=== PATIENT | female | born 1985 | race Two or more races ===

== ENCOUNTER 2020-02-05 21:18 | Inpatient (IN) | payer OTHER ==
[~2020-02-05] VITALS: Ht 162.6 cm; Wt 66.7 kg
[2020-02-05 22:38] LABS: BASOPHILS % (AUTO) 0.6 % (0.0-2.0); EOSINOPHILS % (AUTO) 2.2 % (1.0-6.0); HEMATOCRIT 44.8 % (36-46); HEMOGLOBIN 14.7 g/dL (12.0-16.0); LYMPHOCYTES # (AUTO) 3.1 K/uL (1.0-4.8); LYMPHOCYTES % (AUTO) 30.1 % (22.0-44.0); MEAN CORPUSCULAR HEMOGLOBIN 30.9 pg (26.0-34.0); MEAN CORPUSCULAR HGB CONC 32.8 G/dL (31.0-37.0); MEAN CORPUSCULAR VOLUME 94 fL (80-100); MONOCYTES # (AUTO) 1.3 K/uL (0.1-1.0); MONOCYTES % (AUTO) 12.3 % (2.0-9.0); NEUTROPHILS # (AUTO) 5.7 K/uL (1.8-7.7); NEUTROPHILS % (AUTO) 54.8 % (40.0-70.0); PLATELET COUNT (AUTO) 356 K/uL (150-450); RED BLOOD CELL COUNT(AUTO) 4.76 MIL/uL (4.00-5.20); RED CELL DISTRIBUTION WIDTH 13.7 % (11.5-14.5)
[2020-02-05] MEDS ORDERED: HALOPERIDOL LACTATE 5 MG/ML VIAL ONE (22:44)
[2020-02-05] MEDS ORDERED: DiphenhydrAMINE HCL 50 MG/ML VIAL ONE (22:44)
[2020-02-05] MEDS ORDERED: LORazepam 2 MG/ML VIAL ONE (22:44)
[2020-02-05] MEDS ORDERED: DiphenhydrAMINE HCL 50 MG/ML VIAL IM ONE (22:45)
[2020-02-05] MEDS ORDERED: HALOPERIDOL LACTATE 5 MG/ML VIAL IM ONE (22:45)
[2020-02-05] MEDS ORDERED: LORazepam 2 MG/ML VIAL IM ONE (22:45)
[2020-02-05] MEDS ORDERED: ZOLPIDEM TARTRATE 10 MG TABLET PO PRN (23:00)
[2020-02-05] MEDS ORDERED: OLANZapine 5 MG RAPDIS TABLET PO PRN (23:00)
[2020-02-05] MEDS ORDERED: LORazepam 2 MG TABLET PO PRN (23:00)
[2020-02-05 23:10] LABS: ALANINE AMINOTRANSFERASE 31 U/L (12-78); ALKALINE PHOSPHATASE 89 U/L (46-116); ANION GAP 10 mmol/L (8-16); ASPARTATE AMINOTRANSFERASE 22 U/L (15-37); BILIRUBIN,TOTAL 0.4 mg/dL (0.1-1.0); CALCIUM, TOTAL 9.2 mg/dL (8.8-10.5); CARBON DIOXIDE 29 mmol/L (22-29); CHLORIDE 103 mmol/L (98-107); CREATININE 0.83 mg/dL (0.60-1.30); GLOMERULAR FILTR. RATE CALC > 60 mL/min (>60); GLUCOSE,RANDOM 106 mg/dL (70-110); POTASSIUM 4.1 mmol/L (3.5-5.1); SODIUM SERUM 142 mmol/L (136-145); UREA NITROGEN, BLOOD 9 mg/dL (7-18)
[2020-02-05 23:17] LABS: AMPHET/METH SCREEN,URINE NEGATIVE (NEGATIVE); BARBITURATE SCREEN, URINE NEGATIVE (NEGATIVE); BENZODIAZEPINES SCREEN,URINE NEGATIVE (NEGATIVE); CANNABINOID SCREEN,URINE NEGATIVE (NEGATIVE); COCAINE SCREEN,URINE NEGATIVE (NEGATIVE); METHADONE SCREEN, URINE NEGATIVE (NEGATIVE); OPIATE SCREEN,URINE NEGATIVE (NEGATIVE)
[2020-02-05 23:20] LABS: PHENCYCLIDINE SCREEN,URINE NEGATIVE (NEGATIVE)
[2020-02-06 01:19] VITALS: BP 90/60
[2020-02-06] MEDS ORDERED: PNEUMOCOCCAL VACCINE POLYVALENT 0.5 ML VIAL [PPSV23] IM ONE (03:30)
[2020-02-06 08:28] VITALS: BP 100/61
[2020-02-06] MEDS ORDERED: PROMETHAZINE HCL 25 MG TABLET PO PRN (16:00)
[2020-02-06] MEDS ORDERED: HydrOXYzine PAMOATE 50 MG CAPSULE PO PRN (16:00)
[2020-02-06] MEDS ORDERED: GuaiFENesin/D-METHORPHAN [SUGAR-FREE] 200-20MG/10 ML SYRUP UDCUP PO PRN (16:00)
[2020-02-06] MEDS ORDERED: TUBERCULIN, PURIFIED PROTEIN DERIVATIVE 5 TU/0.1 ML SYRINGE ID ONE (16:00)
[2020-02-06 16:30] VITALS: BP 112/74
[2020-02-06] MEDS: THIAMINE 100 MG TABLET PO SCH (17:00)
[2020-02-06] MEDS: OLANZapine 5 MG RAPDIS TABLET PO SCH (21:00)
[2020-02-06] MEDS: DIVALPROEX SODIUM 500 MG ER TABLET PO SCH (21:00)
[2020-02-07 03:43] VITALS: BP 95/60
[2020-02-07 07:55] LABS: HEMOGLOBIN A1C 4.9 % (3.8-5.6)
[2020-02-07 07:56] LABS: CHOL/HDL RATIO 2.3 (3.9-5.7); CHOLESTEROL 184 mg/dL (131-200); HCG,QUANTITATIVE < 1 mIU/mL (0-6); HDL CHOLESTEROL 81 mg/dL (40-60); LDL CHOL (CALC.) 83 mg/dL (0-130); THYROID STIMULATING HORMONE 0.72 uIU/mL (0.36-3.74); TRIGLYCERIDES 98 mg/dL (15-150)
[2020-02-07 08:30] VITALS: BP 79/50
[2020-02-07] MEDS: THIAMINE 100 MG TABLET PO SCH ×2 (09:00→16:18)
[2020-02-07] MEDS: MULTIVITAMINS WITH MINERALS, THERAPEUTIC TABLET PO SCH (09:00)
[2020-02-07] MEDS: FOLIC ACID 1 MG TABLET PO SCH (09:00)
[2020-02-07] MEDS: NALTREXONE HCL 50 MG TABLET PO SCH (09:00)
[2020-02-07 17:23] VITALS: BP 123/74
[2020-02-07] MEDS: OLANZapine 5 MG RAPDIS TABLET PO SCH (21:00)
[2020-02-07] MEDS: DIVALPROEX SODIUM 500 MG ER TABLET PO SCH (21:00)
[2020-02-07] MEDS: IBUPROFEN 600 MG TABLET PO PRN (23:05)
[2020-02-08 00:21] VITALS: BP 117/76
[2020-02-08] MEDS: FOLIC ACID 1 MG TABLET PO SCH (08:14)
[2020-02-08] MEDS: NALTREXONE HCL 50 MG TABLET PO SCH (08:14)
[2020-02-08] MEDS: THIAMINE 100 MG TABLET PO SCH ×2 (08:15→17:00)
[2020-02-08] MEDS: MULTIVITAMINS WITH MINERALS, THERAPEUTIC TABLET PO SCH (08:15)
[2020-02-08 08:37] VITALS: BP 108/66
[2020-02-08] MEDS ORDERED: LOPERAMIDE HCL 2 MG CAPSULE PO PRN (16:15)
[2020-02-08] MEDS ORDERED: MAGNESIUM HYDROXIDE SUSPENSION 30 ML UDCUP PO PRN (16:15)
[2020-02-08] MEDS ORDERED: PROMETHAZINE HCL 25 MG TABLET PO PRN (16:15)
[2020-02-08] MEDS ORDERED: MAG HYDROX/AL HYDROX/SIMETH ES 30 ML SUSPENSION UDCUP PO PRN (16:15)
[2020-02-08 16:28] VITALS: BP 101/72
[2020-02-08] MEDS ORDERED: PETROLATUM,WHITE 28 GM JELLY TP PRN (16:30)
[2020-02-08] MEDS: IBUPROFEN 600 MG TABLET PO PRN (17:03)
[2020-02-08] MEDS: OLANZapine 5 MG RAPDIS TABLET PO SCH (20:47)
[2020-02-08] MEDS: DIVALPROEX SODIUM 500 MG ER TABLET PO SCH (20:47)
[2020-02-09] MEDS: IBUPROFEN 600 MG TABLET PO PRN ×2 (00:33→17:00)
[2020-02-09 02:20] VITALS: BP 112/79
[2020-02-09 08:27] VITALS: BP 114/75
[2020-02-09] MEDS: MULTIVITAMINS WITH MINERALS, THERAPEUTIC TABLET PO SCH (08:36)
[2020-02-09] MEDS: NALTREXONE HCL 50 MG TABLET PO SCH (08:36)
[2020-02-09] MEDS: FOLIC ACID 1 MG TABLET PO SCH (08:36)
[2020-02-09] MEDS: THIAMINE 100 MG TABLET PO SCH ×2 (08:37→17:00)
[2020-02-09 16:39] VITALS: BP 122/80
[2020-02-09] MEDS: DIVALPROEX SODIUM 500 MG ER TABLET PO SCH (21:00)
[2020-02-09] MEDS: OLANZapine 5 MG RAPDIS TABLET PO SCH (21:00)
[2020-02-10] MEDS: IBUPROFEN 600 MG TABLET PO PRN ×2 (00:02→16:05)
[2020-02-10] MEDS ORDERED: DiphenhydrAMINE HCL 50 MG/ML VIAL IM ONE (00:15)
[2020-02-10] MEDS ORDERED: HALOPERIDOL LACTATE 5 MG/ML VIAL IM ONE (00:15)
[2020-02-10] MEDS ORDERED: LORazepam 2 MG/ML VIAL IM ONE (00:15)
[2020-02-10] MEDS ORDERED: HALOPERIDOL LACTATE 5 MG/ML VIAL ONE (00:17)
[2020-02-10] MEDS ORDERED: LORazepam 2 MG/ML VIAL ONE (00:17)
[2020-02-10] MEDS ORDERED: DiphenhydrAMINE HCL 50 MG/ML VIAL ONE (00:17)
[2020-02-10 02:08] VITALS: BP 109/76
[2020-02-10] MEDS: FOLIC ACID 1 MG TABLET PO SCH (09:00)
[2020-02-10] MEDS: NALTREXONE HCL 50 MG TABLET PO SCH (09:00)
[2020-02-10] MEDS: THIAMINE 100 MG TABLET PO SCH ×2 (09:00→17:00)
[2020-02-10] MEDS: MULTIVITAMINS WITH MINERALS, THERAPEUTIC TABLET PO SCH (09:00)
[2020-02-10 10:33] VITALS: BP 95/66
[2020-02-10 17:52] VITALS: BP 106/72
[2020-02-10] MEDS: OLANZapine 5 MG RAPDIS TABLET PO SCH (21:00)
[2020-02-10] MEDS: DIVALPROEX SODIUM 500 MG ER TABLET PO SCH (21:00)
[2020-02-11 01:45] VITALS: BP 100/75
[2020-02-11 08:25] VITALS: BP 126/71
[2020-02-11] MEDS: MULTIVITAMINS WITH MINERALS, THERAPEUTIC TABLET PO SCH (09:00)
[2020-02-11] MEDS: NALTREXONE HCL 50 MG TABLET PO SCH (09:00)
[2020-02-11] MEDS: THIAMINE 100 MG TABLET PO SCH ×3 (09:00→17:10)
[2020-02-11] MEDS: FOLIC ACID 1 MG TABLET PO SCH (09:00)
[2020-02-11] MEDS: IBUPROFEN 600 MG TABLET PO PRN ×2 (12:56→22:05)
[2020-02-11 16:41] VITALS: BP 111/72
[2020-02-11] MEDS: OLANZapine 5 MG RAPDIS TABLET PO SCH (20:53)
[2020-02-11] MEDS: DIVALPROEX SODIUM 500 MG ER TABLET PO SCH (20:53)
[2020-02-12 03:19] VITALS: BP 98/69
[2020-02-12] MEDS: IBUPROFEN 600 MG TABLET PO PRN ×3 (04:18→23:19)
[2020-02-12] MEDS: FOLIC ACID 1 MG TABLET PO SCH (08:39)
[2020-02-12] MEDS: NALTREXONE HCL 50 MG TABLET PO SCH (08:40)
[2020-02-12] MEDS: THIAMINE 100 MG TABLET PO SCH ×2 (08:40→17:00)
[2020-02-12] MEDS: MULTIVITAMINS WITH MINERALS, THERAPEUTIC TABLET PO SCH (08:40)
[2020-02-12 08:54] VITALS: BP 109/72
[2020-02-12 17:22] VITALS: BP 113/87
[2020-02-12] MEDS: DIVALPROEX SODIUM 500 MG ER TABLET PO SCH (20:30)
[2020-02-12] MEDS: OLANZapine 5 MG RAPDIS TABLET PO SCH (20:30)
[2020-02-12] MEDS ORDERED: BACLOFEN 10 MG TABLET PO PRN (21:30)
[2020-02-12] MEDS ORDERED: ALBUTEROL SULFATE HFA 90 MCG/PUFF 8 GM INHALER IH PRN (21:30)
[2020-02-13] MEDS: FOLIC ACID 1 MG TABLET PO SCH ×2 (09:00→10:00)
[2020-02-13] MEDS: NALTREXONE HCL 50 MG TABLET PO SCH ×2 (09:00→10:00)
[2020-02-13] MEDS: THIAMINE 100 MG TABLET PO SCH ×3 (09:00→17:23)
[2020-02-13] MEDS: MULTIVITAMINS WITH MINERALS, THERAPEUTIC TABLET PO SCH ×2 (09:00→10:00)
[2020-02-13] MEDS: CETIRIZINE HCL 10 MG TABLET PO SCH ×2 (09:00→10:00)
[2020-02-13] MEDS ORDERED: DIVALPROEX SODIUM 500 MG ER TABLET PO ONE (10:45)
[2020-02-13] MEDS: DIVALPROEX SODIUM 500 MG ER TABLET PO SCH (12:30)
[2020-02-13] MEDS: IBUPROFEN 600 MG TABLET PO PRN ×2 (14:14→21:01)
[2020-02-13 16:18] VITALS: BP 126/100
[2020-02-13] MEDS: OLANZapine 5 MG RAPDIS TABLET PO SCH (20:25)
[2020-02-14 00:54] VITALS: BP 106/60
[2020-02-14 08:09] VITALS: BP 127/100
[2020-02-14] MEDS: THIAMINE 100 MG TABLET PO SCH ×2 (08:49→17:35)
[2020-02-14] MEDS: MULTIVITAMINS WITH MINERALS, THERAPEUTIC TABLET PO SCH (08:49)
[2020-02-14] MEDS: CETIRIZINE HCL 10 MG TABLET PO SCH (08:49)
[2020-02-14] MEDS: FOLIC ACID 1 MG TABLET PO SCH (08:49)
[2020-02-14] MEDS: NALTREXONE HCL 50 MG TABLET PO SCH (09:00)
[2020-02-14] MEDS: DIVALPROEX SODIUM 500 MG ER TABLET PO SCH (12:30)
[2020-02-14 17:12] VITALS: BP 148/86
[2020-02-14] MEDS: IBUPROFEN 600 MG TABLET PO PRN (19:52)
[2020-02-14] MEDS: OLANZapine 5 MG RAPDIS TABLET PO SCH (20:53)
[2020-02-15 06:01] VITALS: BP 100/65
[2020-02-15 08:20] VITALS: BP 105/49
[2020-02-15] MEDS: MULTIVITAMINS WITH MINERALS, THERAPEUTIC TABLET PO SCH (08:35)
[2020-02-15] MEDS: FOLIC ACID 1 MG TABLET PO SCH (08:35)
[2020-02-15] MEDS: NALTREXONE HCL 50 MG TABLET PO SCH (08:35)
[2020-02-15] MEDS: IBUPROFEN 600 MG TABLET PO PRN ×2 (08:36→21:54)
[2020-02-15] MEDS: THIAMINE 100 MG TABLET PO SCH ×2 (08:36→17:00)
[2020-02-15] MEDS: CETIRIZINE HCL 10 MG TABLET PO SCH (08:37)
[2020-02-15] MEDS: DIVALPROEX SODIUM 500 MG ER TABLET PO SCH (12:30)
[2020-02-15 16:41] VITALS: BP 112/87
[2020-02-15] MEDS: OLANZapine 5 MG RAPDIS TABLET PO SCH (21:00)
[2020-02-16] MEDS: IBUPROFEN 600 MG TABLET PO PRN ×2 (01:47→21:05)
[2020-02-16] MEDS ORDERED: DiphenhydrAMINE HCL 50 MG/ML VIAL ONE (03:17)
[2020-02-16] MEDS ORDERED: HALOPERIDOL LACTATE 5 MG/ML VIAL ONE (03:18)
[2020-02-16] MEDS ORDERED: LORazepam 2 MG/ML VIAL ONE (03:18)
[2020-02-16] MEDS ORDERED: HALOPERIDOL LACTATE 5 MG/ML VIAL IM ONE (03:30)
[2020-02-16] MEDS ORDERED: LORazepam 2 MG/ML VIAL IM ONE (03:30)
[2020-02-16] MEDS ORDERED: DiphenhydrAMINE HCL 50 MG/ML VIAL IM ONE (03:30)
[2020-02-16] MEDS: THIAMINE 100 MG TABLET PO SCH ×2 (09:00→10:02)
[2020-02-16] MEDS: FOLIC ACID 1 MG TABLET PO SCH ×2 (09:00→10:02)
[2020-02-16] MEDS: MULTIVITAMINS WITH MINERALS, THERAPEUTIC TABLET PO SCH ×2 (10:02→12:16)
[2020-02-16] MEDS: CETIRIZINE HCL 10 MG TABLET PO SCH ×2 (10:02→12:16)
[2020-02-16] MEDS: NALTREXONE HCL 50 MG TABLET PO SCH ×2 (10:02→12:16)
[2020-02-16] MEDS: DIVALPROEX SODIUM 500 MG ER TABLET PO SCH (12:19)
[2020-02-16 17:40] VITALS: BP 115/69
[2020-02-16] MEDS: OLANZapine 5 MG RAPDIS TABLET PO SCH (21:00)
[2020-02-17 08:21] VITALS: BP 113/64
[2020-02-17] MEDS: MULTIVITAMINS WITH MINERALS, THERAPEUTIC TABLET PO SCH (09:00)
[2020-02-17] MEDS: NALTREXONE HCL 50 MG TABLET PO SCH (09:00)
[2020-02-17] MEDS: CETIRIZINE HCL 10 MG TABLET PO SCH (09:00)
[2020-02-17] MEDS: DIVALPROEX SODIUM 500 MG ER TABLET PO SCH (12:28)
[2020-02-17] MEDS: IBUPROFEN 600 MG TABLET PO PRN ×2 (13:50→20:44)
[2020-02-17 17:40] VITALS: BP 103/63
[2020-02-17] MEDS: OLANZapine 5 MG RAPDIS TABLET PO SCH (21:00)
[2020-02-18] MEDS: MULTIVITAMINS WITH MINERALS, THERAPEUTIC TABLET PO SCH (08:28)
[2020-02-18] MEDS: CETIRIZINE HCL 10 MG TABLET PO SCH (08:28)
[2020-02-18] MEDS: NALTREXONE HCL 50 MG TABLET PO SCH (08:29)
[2020-02-18 08:37] VITALS: BP 119/58
[2020-02-18] MEDS: IBUPROFEN 600 MG TABLET PO PRN ×3 (08:56→23:19)
[2020-02-18] MEDS: DIVALPROEX SODIUM 500 MG ER TABLET PO SCH (10:45)
[2020-02-18 16:43] VITALS: BP 115/65
[2020-02-18] MEDS ORDERED: HALOPERIDOL LACTATE 5 MG/ML VIAL IM PRN (17:15)
[2020-02-18] MEDS ORDERED: LURASIDONE HCL 20 MG TABLET PO ONE (18:15)
[2020-02-19] MEDS: LURASIDONE HCL 20 MG TABLET PO SCH ×3 (06:54→17:56)
[2020-02-19 08:40] VITALS: BP 110/68
[2020-02-19] MEDS: IBUPROFEN 600 MG TABLET PO PRN ×2 (08:44→16:38)
[2020-02-19] MEDS: CETIRIZINE HCL 10 MG TABLET PO SCH (08:45)
[2020-02-19] MEDS: DIVALPROEX SODIUM 500 MG ER TABLET PO SCH (08:45)
[2020-02-19] MEDS: MULTIVITAMINS WITH MINERALS, THERAPEUTIC TABLET PO SCH (08:45)
[2020-02-19] MEDS: NALTREXONE HCL 50 MG TABLET PO SCH (08:45)
[2020-02-19] MEDS ORDERED: ALPRAZolam 1 MG TABLET PO PRN ×2 (10:45→14:45)
[2020-02-19 16:37] VITALS: BP 109/71
[2020-02-20] MEDS: LURASIDONE HCL 20 MG TABLET PO SCH ×2 (06:30→12:00)
[2020-02-20 06:34] VITALS: BP 105/68
[2020-02-20 08:15] VITALS: BP 121/63
[2020-02-20] MEDS: NALTREXONE HCL 50 MG TABLET PO SCH (08:39)
[2020-02-20] MEDS: MULTIVITAMINS WITH MINERALS, THERAPEUTIC TABLET PO SCH (08:39)
[2020-02-20] MEDS: DIVALPROEX SODIUM 500 MG ER TABLET PO SCH (08:39)
[2020-02-20] MEDS: CETIRIZINE HCL 10 MG TABLET PO SCH (08:39)
[2020-02-20] MEDS: IBUPROFEN 600 MG TABLET PO PRN (08:49)
[2020-02-20] MEDS ORDERED: CloNIDine HCL 0.1 MG TABLET PO PRN (14:00)
[2020-02-20] MEDS ORDERED: LOPERAMIDE HCL 2 MG CAPSULE PO PRN (14:00)
[2020-02-20] MEDS ORDERED: GuaiFENesin/D-METHORPHAN [SUGAR-FREE] 200-20MG/10 ML SYRUP UDCUP PO PRN (14:00)
[2020-02-20] MEDS ORDERED: MAG HYDROX/AL HYDROX/SIMETH ES 30 ML SUSPENSION UDCUP PO PRN (14:00)
[2020-02-20] MEDS ORDERED: PETROLATUM,WHITE 28 GM JELLY TP PRN (14:00)
[2020-02-20] MEDS ORDERED: MAGNESIUM HYDROXIDE SUSPENSION 30 ML UDCUP PO PRN (14:00)
[2020-02-20] MEDS ORDERED: NICOTINE 14 MG/24 HOUR PATCH TD PRN (14:00)
[2020-02-20] MEDS ORDERED: DOCUSATE SODIUM 100 MG CAPSULE PO PRN (14:00)
[2020-02-20] MEDS ORDERED: ONDANSETRON HCL 4 MG TABLET PO PRN (14:00)
[2020-02-20] MEDS ORDERED: IBUPROFEN 400 MG TABLET PO PRN (14:00)
[2020-02-20 14:57] VITALS: BP 107/72
[2020-02-20] MEDS: IBUPROFEN 800 MG TABLET PO PRN ×2 (14:57→21:00)
[2020-02-20 17:40] VITALS: BP 103/68
[2020-02-20] MEDS: ACETAMINOPHEN 325 MG TABLET PO PRN (17:44)
[2020-02-20] MEDS ORDERED: LURASIDONE HCL 40 MG TABLET PO ONE (21:00)
[2020-02-20] MEDS ORDERED: LURASIDONE HCL 60 MG TABLET PO SCH (21:00)
[2020-02-21 04:47] VITALS: BP 105/67
[2020-02-21 08:16] VITALS: BP 97/53
[2020-02-21] MEDS: CETIRIZINE HCL 10 MG TABLET PO SCH (08:41)
[2020-02-21] MEDS: MULTIVITAMINS WITH MINERALS, THERAPEUTIC TABLET PO SCH (08:41)
[2020-02-21] MEDS: DIVALPROEX SODIUM 500 MG ER TABLET PO SCH (08:41)
[2020-02-21] MEDS: IBUPROFEN 800 MG TABLET PO PRN ×2 (08:51→17:17)
[2020-02-21] MEDS: NALTREXONE HCL 50 MG TABLET PO SCH (08:53)
[2020-02-21] MEDS: ACETAMINOPHEN 325 MG TABLET PO PRN (09:51)
[2020-02-21 16:39] VITALS: BP 104/68
[2020-02-21] MEDS: LURASIDONE HCL 60 MG TABLET PO SCH (21:07)
[2020-02-22 03:29] VITALS: BP 112/68
[2020-02-22 08:22] VITALS: BP 101/63
[2020-02-22] MEDS: MULTIVITAMINS WITH MINERALS, THERAPEUTIC TABLET PO SCH (08:38)
[2020-02-22] MEDS: DIVALPROEX SODIUM 500 MG ER TABLET PO SCH (08:38)
[2020-02-22] MEDS: CETIRIZINE HCL 10 MG TABLET PO SCH (08:38)
[2020-02-22] MEDS: NALTREXONE HCL 50 MG TABLET PO SCH (08:43)
[2020-02-22] MEDS: IBUPROFEN 800 MG TABLET PO PRN ×2 (09:08→20:15)
[2020-02-22] MEDS: ACETAMINOPHEN 325 MG TABLET PO PRN (13:03)
[2020-02-22 16:26] VITALS: BP 120/60
[2020-02-22] MEDS ORDERED: TraMADol HCL 50 MG TABLET PO PRN (16:45)
[2020-02-22] MEDS ORDERED: ALPRAZolam 1 MG TABLET PO PRN (21:15)
[2020-02-22] MEDS: LURASIDONE HCL 60 MG TABLET PO SCH (21:42)
[2020-02-23 00:05] VITALS: BP 115/67
[2020-02-23 00:55] VITALS: BP 114/65
[2020-02-23] MEDS: IBUPROFEN 800 MG TABLET PO PRN (08:15)
[2020-02-23 08:23] VITALS: BP 91/69
[2020-02-23] MEDS ORDERED: LURA60TA PO (08:28)
[2020-02-23] MEDS ORDERED: NALT50TA PO (08:28)
[2020-02-23] MEDS ORDERED: DIVA-80 PO (08:28)
[2020-02-23] MEDS: MULTIVITAMINS WITH MINERALS, THERAPEUTIC TABLET PO SCH (08:57)
[2020-02-23] MEDS: DIVALPROEX SODIUM 500 MG ER TABLET PO SCH (08:58)
[2020-02-23] MEDS: NALTREXONE HCL 50 MG TABLET PO SCH (08:58)
[2020-02-23] MEDS: CETIRIZINE HCL 10 MG TABLET PO SCH (08:59)
== END 2020-02-23 21:49 | disposition home or self-care (01) | DRG 885 ==
LOC: EMS 21:18 → B3A 22:53
PROVIDERS: ADMIT Psychiatry & Neurology Psychiatry; ATTEND Psychiatry & Neurology Psychiatry
DX: F25.0 Schizoaffective disorder, bipolar type (principal); R45.851 Suicidal ideations; Z91.14 Patient's other noncompliance with medication regimen; R45.850 Homicidal ideations; Z91.19 Patient's noncompliance with other medical treatment and regimen; F12.90 Cannabis use, unspecified, uncomplicated; F39 Unspecified mood [affective] disorder; F60.3 Borderline personality disorder; J45.909 Unspecified asthma, uncomplicated; F41.9 Anxiety disorder, unspecified; I95.9 Hypotension, unspecified; F17.210 Nicotine dependence, cigarettes, uncomplicated
CPT/HCPCS: 83036; 84439; 84443; 86592; 99291; G0480; J1200; J1630; J2060; J3535